=== PATIENT | male | born 1955 | race Caucasian/White ===

== ENCOUNTER 2017-08-12 06:46 | Inpatient (IN) ==
[~2017-08-12 06:46] MED LIST: ceFAZolin 1,000 MG, Sodium Chloride IRRigation 1,000 ML IR ONE
[2017-08-12] MEDS ORDERED: CeFAZolin Syr 2,000MG/20 ML 2,000 MG/20 ML SYRINGE IVPB ONE (07:12)
[2017-08-12] MEDS ORDERED: Plasma-Lyte A (PH 7.4) 1,000 ML IVC SCH (07:15)
--- NOTE | 2017-08-12 07:35 | History & Physical Report ---
Date of Encounter: 08/12/17 Time of Encounter: 07:25 24 Hour HP Update - Instructions Instructions: If the History and Physical is less than 30 days old and was completed prior to A.M. admission and or procedure and has NOT been updated on calendar day of procedure please complete this update prior to performing procedure. - Update Patient reports changes in Medical Condition: No Changes in examination, assessment, or condition: No Changes in Medication: No Preop tests/diagnostics Reviewed: Yes Surgery Remains Indicated: Yes Consent for Planned Operative Procedure(s) Verified: Yes - Pre-Operative Checklist Preoperative Checklist Indicated: Yes Prophylactic Antibiotic Ordered: Yes Home Medications Include Beta Sarmad: No Beta Sarmad Taken Today (Day of Surgery): No Beta Sarmad Taken Yesterday (Day Prior to Surgery): No Is VTE Prophylaxis Indicated?: Yes
[2017-08-12] MEDS ORDERED: Heparin 1,000 UNITS/500 mL 500 ML ONE ×2 (07:42→07:46)
[2017-08-12] MEDS ORDERED: Lidocaine 1% 20 ML MDV ONE (07:42)
[2017-08-12] MEDS ORDERED: *HR* Propofol 200 MG/20 ML VIAL IVP ONE (07:47)
[2017-08-12] MEDS ORDERED: *HR* FentaNYL (PF) 100 MCG/2 ML VIAL ONE (07:47)
[2017-08-12] MEDS ORDERED: *HR* Midazolam HCl 2 MG/2 ML VIAL ONE (07:47)
[2017-08-12] MEDS ORDERED: *HR* Succinylcholine 200 MG/10 ML VIAL IVP ONE (07:49)
[2017-08-12] MEDS ORDERED: *HR* Rocuronium Bromide 50 MG/5 ML VIAL ONE (07:49)
[2017-08-12] MEDS ORDERED: Lidocaine -MPF 2% 2 ML VIAL ONE ×2 (07:49→08:02)
--- NOTE | 2017-08-12 07:51 | Anesthesia Evaluation PreOp ---
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 History: Denies Any Significant HX Other Medical History: Denies Any Significant HX Anesthesia History: Past Anesthesia (denies psh) Alcohol Use: occasionally Drug use: none Medications and Allergies Aspirin [Lo-Dose Aspirin EC] 81 mg PO DAILY 07/23/17 [History] Lisinopril-HCTZ 20-12.5 [Prinzide 20-12.5] 1 each PO DAILY 07/23/17 [History] 3 Allergy/AdvReac Type Severity Reaction Status Date / Time No Known Allergies Allergy Verified 08/12/17 07:26 - Meds/Allergy Pre-op Review Medications Reviewed: Yes Allergies Reviewed: Yes Beta Blockers on Current Med List: No Anesthesia Results - Imaging EKG: report reviewed (SINUS BRADYCARDIA) Anesthesia Exam Selected Entries 08/12/17 07:25 Temperature 98.5 F Pulse Rate 60 Respiratory Rate 18 Blood Pressure 132/77 O2 Sat by Pulse Oximetry 97 Weight: 97kg NPO (# of Hours): 8 - HEENT Pupil (Motor): EOMI Mallampati: II Teeth: Normal Oral Opening: Less than or equal to 3 - YARDER OPERATOR LOC: Oriented YARDER OPERATOR Motor: Normal RUE, Normal LUE, Normal RLE, Normal LLE, Normal Face YARDER OPERATOR Sensory: Normal: RUE, LUE, RLE, LLE, Face - Cardiac Rhythm: Regular Murmur: None - Pulmonary Breath Sounds: bilateral Clear Respiratory Effort: Symmetrical Anesthesia Assess/Plan ASA Score: 3 Modified Tomás Scale for Level of Consciousness: Cooperative, oriented, and tranquil Anesthetic Plan: General Monitoring Plan: Standard Monitors, A-Line Recovery Plan: PACU (agrees to [place] and a-line)
[2017-08-12] MEDS ORDERED: *HR* Vasopressin 20 UNIT/ML VIAL ONE (07:54)
[2017-08-12] MEDS ORDERED: Acetaminophen IV 1,000 MG/100 ML INFUS..BTL ONE (07:55)
[2017-08-12] MEDS ORDERED: *HR* Remifentanil 2 MG VIAL IVP ONE (07:58)
[2017-08-12] MEDS ORDERED: EPHEDrine 50 MG/ML VIAL ONE ×2 (08:37→09:02)
[2017-08-12] MEDS ORDERED: *HR* PHENYLEPHRINE 1,000 MCG/10 ML SYRINGE IVP ONE ×2 (08:51→10:04)
[2017-08-12] MEDS ORDERED: Ondansetron 4 MG/2 ML VIAL ONE (08:55)
[2017-08-12] MEDS ORDERED: Dexamethasone 4 MG/ML VIAL ONE (08:55)
[2017-08-12] MEDS ORDERED: Ondansetron 4 MG/2 ML VIAL IVP ONE (09:19)
[2017-08-12] MEDS ORDERED: *HR* OxyCODONE Immed Rel 5 MG TABLET PO PRN ×2 (09:19→12:53)
[2017-08-12] MEDS ORDERED: MORPHINE SUL Oral CONC 10 MG/0.5 ML ORAL.SYG SL PRN (09:19)
[2017-08-12] MEDS ORDERED: *HR* Heparin 5,000 UNIT/ML VIAL ONE (10:31)
--- NOTE | 2017-08-12 11:12 | Operative Note ---
Date of procedure: 08/12/17 Pre-op diagnosis: CAROTID STENOSIS Post-op diagnosis: same Procedure: right carotid endarterectomy with 8 Fr shunt and bovine patch angioplasty Complications: none Anesthesia: GETA Surgeon: Agustin Mccann Was there an butcher assistant present: No Estimated blood loss (cc): 100 Specimen: 0 Condition: stable Disposition: PACU Procedure in Detail: History Kun Valadez is a 62-year-old white male who was seen in consultation from the [place] with an abnormal carotid duplex scan. He went on to have a carotid artery angiogram which showed a long high-grade lesion of the proximal right internal carotid artery. Because of the severity of the stenosis it was recommended the patient have urgent surgery and he now comes for that operation. Procedure After informed consent was obtained the patient was taken to the operating room. General endotracheal anesthesia was established under arterial line pressure monitoring. The right neck was sterilely prepped and draped. A timeout protocol was observed. An oblique incision was made on the anterior surface of the neck along the anterior aspect of the sternocleidomastoid muscle. Dissection was carried down to the carotid sheath. The contents of the sheath were identified and preserved. Selective control was then obtained of the carotid arteries. An 11 blade knife and Caicedo scissors were used to open the artery after 5000 units of heparin were given and a 3 minute delay was observed. An 8-Albanian shunt was then inserted atraumatically. Patency of the shunt was confirmed by the use of intraoperative Doppler. Inspection of the plaque revealed a very dense and critical stenosis in the proximal portion of the right internal carotid artery with extension through the bulbar area. There was no finding of intraluminal thrombus or intramural thrombus. An endarterectomy was then performed beginning at the distal aspect of the common carotid artery. A dissection plane was established and carried proximally and distally. The orifice of the superior thyroid and external carotid artery were also endarterectomized. The endpoint on the internal carotid artery was relatively high. After the plaque was removed the bed of the vessel was inspected for any residual debris. After this was removed the area was flushed with a copious amount of heparinized saline and then a bovine pericardial patch was sewn into position using 2 6-0 Prolene sutures. Leaving a small space open the shunt was clamped divided and then removed. The final few sutures were then placed. The internal carotid artery was allowed to back bleed and then was reclamped. The external and common carotid arteries were then opened and then finally the internal carotid artery was opened. There was no hemodynamic distress with this maneuver. Excellent Doppler signals and pulsations were noted throughout the carotid system. Hemostasis was achieved. Protamine was not given to the patient. A superficial cervical block using half percent Marcaine was performed. The wound was then closed in layers using absorbable suture. No drains were placed. The patient awoke from anesthesia and was neurologically intact. The patient was then transported from the operating room to the recovery room in stable condition.
--- NOTE | 2017-08-12 11:37 | Anesthesia Evaluation Post Op ---
Date of Encounter: 08/12/17 Time of Encounter: 11:36 - Vital Signs Vital Signs: Selected Entries 08/12/17 11:10 08/12/17 11:20 Temperature 98.1 F Pulse Rate 70 Respiratory Rate 18 Blood Pressure 130/77 O2 Sat by Pulse Oximetry 98 - Lungs Lungs: Clear Ascult./Percussion - Airway Airway: Non-obstructed - Cardiovascular Regular Rate - Mental Status Mental Status: Alert & Oriented, Answers Appropriately - Pain Pain Scale: 2 Pain Scale used: Numeric (1 - 10) - Nausea Vomiting Nausea Vomiting: Not Present - Hydration Hydration: Ice chips, Has not voided - Discharge PostOp Status: Transfer Patient to floor
[2017-08-12] MEDS ORDERED: *HR* HYDROcodone/Acet 5/325 mg TABLET PO PRN (12:53)
[2017-08-12] MEDS ORDERED: Ondansetron 4 MG/2 ML VIAL IVP PRN (12:53)
[2017-08-12] MEDS ORDERED: Acetaminophen 325 MG TABLET PO PRN (12:53)
[2017-08-12] MEDS ORDERED: *HR* Labetalol 20 MG/4 ML SYRINGE IVP PRN (12:53)
[2017-08-12] MEDS ORDERED: Naloxone 0.4 MG/ML INJ IVP PRN (12:53)
[2017-08-12] MEDS: CeFAZolin Premix DUPLEX 2,000 MG/50 ML BAG IVPB SCH ×2 (15:50→23:41)
[2017-08-13] MEDS ORDERED: 0.9 % Sodium Chloride 500 ML IVC ONE (00:38)
[2017-08-13] MEDS ORDERED: Phenylephrine 10 MG in D5% in Water 250 ML IVC SCH (00:45)
[2017-08-13 04:48] LABS: BUN/Creatinine Ratio 12 (6-26); Blood Urea Nitrogen 10 mg/dL (8-23); Carbon Dioxide 24 mEq/L (23-29); Chloride 99 mEq/L (98-107); Glucose 136 mg/dL (70-105); Osmolality,Calculated 271 (280-300); Potassium 3.6 mEq/L (3.5-5.1); Sodium 130 mEq/L (136-145); eGFR For African Americans > 60 (> 60); eGFR For Non-African Americans > 60 (> 60)
[2017-08-13] MEDS: CeFAZolin Premix DUPLEX 2,000 MG/50 ML BAG IVPB SCH (07:42)
[2017-08-13] MEDS ORDERED: Aspirin Enteric Coated 81 MG Tablet PO SCH (09:00)
[2017-08-13] MEDS ORDERED: Lisinopril-HCTZ 20-12.5mg TABLET PO SCH (09:00)
[2017-08-13 11:08] VITALS: BP 96/54
--- NOTE | 2017-08-13 14:09 | Discharge Summary ---
Date of Encounter: 08/13/17 Time of Encounter: 13:00 - Discharge Diagnosis (1) Carotid stenosis Priority: Primary Status: Acute Comments: The patient was identified as having a abnormal carotid duplex scan and abnormal carotid angiogram. He was admitted for right carotid endarterectomy. Qualifiers: Laterality: right Qualified Code(s): I65.21 - Occlusion and stenosis of right carotid artery (2) Hypertension Priority: Secondary Status: Chronic Comments: Patient is under medical treatment for chronic hypertension Qualifiers: Hypertension type: essential hypertension Qualified Code(s): I10 - Essential (primary) hypertension - Discharge Medications Home Medications: Aspirin [Lo-Dose Aspirin EC] 81 mg PO DAILY 07/23/17 [History] Lisinopril-HCTZ 20-12.5 [Prinzide 20-12.5] 1 each PO DAILY 07/23/17 [History] Allergies/Adverse Reactions: 3 Allergy/AdvReac Type Severity Reaction Status Date / Time No Known Allergies Allergy Verified 08/12/17 07:26 Date of admission: 08/12/17 12:48 [facility] care physician: [facility] Consults: None Procedure(s) Performed: Right carotid endarterectomy with bovine pericardial patch Discharging clinician: Agustin Mccann Anticipated date of discharge: 08/13/17 - Patient Status Disposition: Home, Self-Care Condition: Good Functional capacity at discharge: independent ambulation Overall status at discharge: patient is progressing back to baseline - Discharge Instructions Instructions: Carotid Endarterectomy (DC) Follow Up With: [facility] [Primary Care Provider] - 08/21/17 9:30 am Agustin Mccann MD [Partnered Physician] - 09/03/17 9:45 am Additional Instructions: Follow-up with Dr. Mccann in 2 weeks. Keep right neck incision dry for total of 5 days following surgery. Keep ice pack on right neck for 2 days after discharge. Using incentive spirometer at home for the next 2 weeks. Patient may ambulate inside and outside. No lifting greater than 10 pounds. Patient is not to drive an automobile. - Diet and Activity Activity: increase activity as tolerated Diet: low fat, low cholesterol - Hospital Course Hospital course: Mr. Valadez is a 62 year old male With right carotid stenosis. He underwent a right carotid endarterectomy under general endotracheal anesthesia. He had no periprocedural complications. He tolerated the procedure well. He was neurologically intact postoperatively. He was felt fit for discharge on the afternoon of postoperative day #1. Instructions were given in regards to his diet and medications and activities and wound care. - Time Spent with Patient Total time spent providing and/or coordinating discharge services: Exam Vital Signs, Last 4 Hours Temp Pulse Resp BP Pulse Ox 08/13/17 11:50 54 08/13/17 11:05 98.3 F 55 18 96/54 99 General: Present: Conversant, No Apparent Distress, Well developed, Well nourished HEENT: Present: Atraumatic, Trachea midline, Pupils equal Neck: Absent: JVD, Midline deformity, Tracheal deviation Cardiac: Present: Reg Rate and Rhythm Neuro: Present: Alert and responsive, No focal deficits noted, Cranial nerves grossly intact, Motor nerves grossly intact, Sensory nerves grossly intact Vascular: Present: Surgical incisions (Right neck incision is clean and dry) Skin: Present: No rashes noted on visualized skin - VTE Documentation of Mechanical Device: Intermittent pneumatic compression device
== END 2017-08-13 14:55 | disposition home or self-care (01) | DRG 39 ==
LOC: SAMDAY 06:46 → 2NNU 12:48
PROVIDERS: ADMIT Surgery Vascular Surgery; ATTEND Surgery Vascular Surgery